=== PATIENT | male | born 1985 | race Caucasian/White ===

== ENCOUNTER 2017-06-14 15:54 | Emergency (ER) | payer OTHER, MEDICAID ==
[~2017-06-14 15:54] MED LIST: STERILE WATER IRRIGATION IR ONE; XYLOCAINE 1 % (PLAIN) ONE; XYLOCAINE 2 % (PLAIN) ONE
[2017-06-14] MEDS ORDERED: ZOFRAN INJ 4 MG VIAL ONE (15:56)
[2017-06-14] MEDS ORDERED: MORPHINE SULFATE INJ 4 MG ONE (15:56)
[2017-06-14] MEDS ORDERED: XYLOCAINE 2 % (PLAIN) ONE (15:56)
[2017-06-14 16:02] VITALS: BP 119/76; BMI 22.1
[2017-06-14] MEDS ORDERED: ADACEL TDaP IM ONE ×2 (16:02→16:06)
[2017-06-14] MEDS ORDERED: MORPHINE SULFATE INJ 4 MG IVP ONE (16:03)
[2017-06-14] MEDS ORDERED: ZOFRAN INJ 4 MG VIAL IVP ONE (16:03)
--- NOTE | 2017-06-14 16:08 | DR.LACERAT ---
HPI - Time Seen Time seen: 16:00 - Primary Care Physician Primary Care Physician: JAKE JENKINS - HPI Comment HPI Comment: HISTORY BELOW. - Complaints Chief Complaint Doctors Comments: CUT TIP OF RING FINGER AND ABRSION TO MIDDLE AND RING FINGERS ON LEFT HAND. CUT SUSTAIN WITH WEED EATER. TD NOT UTD. Chief Complaint:: PT C/O THAT HE CUT THE TIP OF HIS LEFT RING FINGER WITH A WEEDEATER AND PT HAS AN ABRASION TO HIS MIDDLE FINGER AND PINKY.. BR - Reviewed Nurses Notes Reviewed: Yes - Source History Provided: Patient - Mode of Arrival Mode of Arrival: EMS - Timing Onset of Chief Complaint: 06/14/17 - Context Mechanism: Metal (WEED EATER.) Tetanus Vaccination: No - Severity Pain Severity: Moderate Bleeding:: Controlled - Associated Signs and Symptoms Associated Signs and Symptoms: None PMH - PMH Past Medical History: No Past Surgical History: No Surgical History: No History - Family History History of Family Medical Conditions: No - Social History Does patient currently use any type of tobacco product: Yes Have you used tobacco products in the last 12 months: Yes Type of Tobacco Use: Cigarettes How many years tobacco product used: 6 Does any household member use tobacco: No Alcohol Use: Rarely Do you use any recreational Drugs:: No Lives With: Family Lives Where: Home - infectious screening In the last 2 months have you had wt loss of >10#?: NO Have you had fever, night sweats or hemotysis?: No Have you traveled outside the country in the last 6 months?: No Isolation: Standard ROS - Review of Systems Constitutional: No Symptoms Reported Eyes: No Symptoms Reported ENTM: No Symptoms Reported Respiratoy: No Symptoms Reported Cardiovascular: No Symptoms Reported Gastrointestinal/Abdominal: No Symptoms Reported Genitourinary: No Symptoms Reported Neurological: No Symptoms Reported Musculoskeletal: Left, Hand Integumentary: Change in Color, Wound (3CM LAC TIP LEFT RING FINGER.) Hematologic/Lymphatic: No Symptoms Reported Endocrine: No Symptoms Reported All Other Systems: Reviewed and Negative PE - Vital Signs Vitals: Pulse Rate 62 Respiratory Rate 18 Blood Pressure 119/76 O2 Sat by Pulse Oximetry 99 - General Limitations: No Limitations General Appearance: Alert - Head Head Exam: Normal Inspection - Eyes Eye exam: Normal Appearance - Neck Neck Exam: Trachea Midline - Chest Chest Inspection: Symmetric Chest Wall Rise - Respiratory Respiratory Exam: Normal Lung Sounds Bilat Respiratory Exam: Bilateral Clear to Auscultation - Cardiovascular Cardiovascular Exam: Regular Rate, Normal Rhythm, Normal Heart Sounds - Abdominal Exam Abdominal Exam: Normal Inspection - Extremities Extremities Exam: Tenderness (LAC RT RING FINGER.) - Back Back Exam: Normal Inspection - Neurologic Neurological Exam: Alert, Oriented X3 - Psychiatric Psychiatric Exam: Normal Affect, Normal Mood - Skin Type of Lesion: Laceration (LT RING FINGER.) MDM - Additional Information Obtained Additional Information Obtained From: Family - Differential Diagnosis Differential Diagnosis: Abrasion, Avulsion, Contusion, Laceration (LT RING FINGER.), Fracture Course - Treatment Treatment: SEE ORDERS. TD IM IN ED. - Consultation Consultation Comments: DR. CABRAL WILL SEE PATIENT IN HIS OFFICE THIS THUSDAY. - Education/Counseling Education/Counseling: Patient, Family, Education Educated On: Diagnosis, Needs for Follow Up ROR - XRAY XRAY Interpreted by: Radiologist XRAY Findings: REPORT DISCUSS WITH PATIENT. OPEN FRACTURE LT RING FEVER. Procedures - Laceration/Wound Repair Left Finger Wound Length (cm): 3 (LT RING FINGER) Wound's Depth, Shape: Flap Wound Explored: contaminated Betadine Prep?: Yes (BETADINE SOAK) Anesthesia: 2% Lidocaine Volume Anesthetic (ccs): 10 Wound Repaired With: sutures Suture Size/Type: 5:0, Vicryl Layer Closure?: No Sterile Dressing Applied?: Yes Splint Applied?: Yes Sling Applied?: No - Diagnosis Discharge Problem: Laceration of finger Qualifiers: Encounter type: initial encounter Finger: ring finger Damage to nail status: with damage Foreign body presence: without foreign body Laterality: left Qualified Code(s): S61.315A - Laceration without foreign body of left ring finger with damage to nail, initial encounter Fracture, finger Qualifiers: Encounter type: initial encounter Finger: ring finger Fracture type: open Phalanx: distal Fracture alignment: displaced Laterality: left Qualified Code(s) : S62.635B - Displaced fracture of distal phalanx of left ring finger, initial encounter for open fracture - Discharge Plan Disposition: HOME, SELF-CARE Condition: Stable Prescriptions: Cephalexin [KEFLEX CAP 500 MG *] 500 mg PO TID #30 cap Ketorolac Tromethamine [Toradol Tab] 10 mg PO Q8H PRN #15 tab PRN Reason: Pain - Follow ups/Referrals Follow ups/Referrals: INTERIANO,GALDINO L [Primary Care Provider] - 3 days - Instructions Instructions: Finger Fracture, [id number], Laceration Care, Adult, Easy-to- Read Additional Instructions: PT IS TO FLU WITH ROBYN WHATLEY ON 06/16/17 AT 10 AM IN THE [facility] ..BR . RETURN TO ED IF WORSE.
--- NOTE | 2017-06-14 16:32 | RAD ---
HISTORY: Laceration from weed eater Study: Three views left hand Comparison: None Findings: There is a comminuted fracture of the tuft of the distal phalanx of the 4th digit with moderate volar displacement. There is overlying soft tissue laceration with penetration to the level of the bone. N o retained radiopaque foreign body is identified. The remaining osseous structures appear intact. IMPRESSION: 1. Fracture of the 4th distal phalanx as described. Reported By:
[2017-06-14] MEDS ORDERED: ANCEF VIAL 1 GM IM ONE (16:40)
[2017-06-14] MEDS ORDERED: NEOSPORIN OINT ONE (16:52)
== END 2017-06-14 17:54 | disposition home or self-care (01) ==
LOC: ER 15:56
PROC: 0XQTXZZ Repair Left Ring Finger, External Approach (ICD-10-PCS; principal; 2017-06-14)
DX: S62.635B Displaced fracture of distal phalanx of left ring finger, initial encounter for open fracture (principal); S61.315A Laceration without foreign body of left ring finger with damage to nail, initial encounter; W29.8XXA Contact with other powered hand tools and household machinery, initial encounter; Y92.9 Unspecified place or not applicable
CPT/HCPCS: 12002; 73130; 90471; 96365; 96372; 96374; 96375; 99283; 99285; A4217; J2001; J2270; J2405

== ENCOUNTER → 2021-06-09 18:30 | Observation (INO) ==
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
[2021-06-09] MEDS: DILAUDID INJ IVP PRN ×4 (00:46→16:09)
[2021-06-09 01:23] VITALS: BMI 23.0
--- NOTE | 2021-06-09 08:16 | OR.IMMED ---
IMMEDIATE POST-OP NOTE Immediate Post-Op Note Pre-Op Diagnosis: acute appendicitis Post-Op Diagnosis: same Procedure: laparoscopic appendectomys Description of Procedure: ee opertative summary Surgeon/Mechanic Field Service: Ana M Findings: acute appendicitis Specimens Removed: appendix Estimated Blood Loss: minimal Drains: NONE Complications: none Discharge Progress Notes: to floor , regular diet , d/c home later today Final Diagnosis: acute appendicitis
--- NOTE | 2021-06-09 13:24 | DR.OPNOTE ---
OP NOTE Pre-Op Diagnosis: acute appendicitis Post-Op Diagnosis: same Procedure Date Date Of Procedure: 06/09/21 Procedure: PROCEDURE: Laparoscopic appendectomy NARRATIVE: The patient was taken to the operative suite and placed in the supine position and general endotracheal anesthesia induced. The entire abdomen prepped and draped in sterile fashion and the patient placed in Trendelenburg position and rotated to his left. Time out for the procedure obtained . 5 mm incision was made lateral to the left rectus sheath online with the umbilicus and 5 mm optical trocar used to enter the abdominal cavity. Abdomen insufflated to 15 mm of Mercury with carbon dioxide. Under direct Vision a 5 mm trocar was placed above the pubic tubercles in the midline and a 12 mm trocar placed in the left lower quadrant .Appendix appeared to be acutely inflamed with no evidence of rupture. The lateral attachments were taken down sharply with electrocautery and the appendix and it's mesentery divided with one fire the GI Stapler . Appendix placed in the specimen bag and removed through the left lower quadrant trocar site The trocar was replaced . The abdomen was irrigated with saline and suctioned free. All trocars removed. The fascia of t he left lower quadrant trocar site closed with 3-0 Vicryl suture. All incisions then closed with 3- 0 Vicryl subcutaneous sutures Skin closed with mastisol and steri- stripes . Total of 15 cc 0.55 Marcaine distributed between the 3 laparoscopic incisions . Patient extubated and taken to the PACU in good condition. Type of Anesthesia: Local (15 cc of 0.5 % Marcaine ) and General Anesthetic w/ETT Findings: acute appendicitis Specimen/Pathology: appendix EBL: minimal Drains/Tubes Placed: None Complications:: none Needle/Sponge Count:: correct Disposition/Condition: Pt. tolerated procedure without difficulty. Extubated in the OR and taken to PACU in stable condition.
[2021-06-09 14:16] VITALS: BP 112/68
[~2021-06-09 18:30] MED LIST changes: +ANCEF VIAL 1 GRAM ONE; +BARHEMSYS INJ IVP PRN; +BENADRYL INJ 50 MG VIAL IVP PRN; +BRIDION ONE; +DILAUDID INJ IVP PRN; +DILAUDID INJ ONE; +DIPRIVAN VIAL 20 ML ONE; +FENTANYL VIAL INJ 100 mcg ONE; +INVanz INJ 1 GRAM VIAL 1 G in NS 100 ML IV 100 ML IV SCH; +INVanz INJ 1 GRAM VIAL ONE; +LR 1,000 ML IV 1,000 ML IV ONE; +LR 1,000 ML IV 1,000 ML IV SCH; +MARCAINE/EPINEPHRINE ONE; +NS 100 ML IV 100 ML ONE; +PEPCID 20 MG VIAL ONE; +PHENERGAN INJ 25 MG IM PRN; +REGLAN INJ 10 MG VIAL IVP PRN; -STERILE WATER IRRIGATION IR ONE; +SUPRANE ONE; +VERSED ONE; -XYLOCAINE 1 % (PLAIN) ONE; +ZEMURON 100 MG VIAL ONE; +ZOFRAN INJ 4 MG VIAL IVP PRN; +ZOFRAN INJ 4 MG VIAL ONE
--- NOTE | 2021-06-09 19:34 | W.DIS.FURT ---
Summary of Discharge Discharge Summary of Date Date of Exam: 06/09/21 Admission Date Date of Admission: 06/09/21 Admission Diagnosis Hospital Course: 35 year old male who presented to the hospital in [place], [place] with abdominal pain. CT scan consistent with acute appendicitis. They had no surgical capabilities there and he was transferred here for care. He underwent uncomplicated laparoscopic appendectomy for acute appendicitis. He has done well and will be discharged home at this time on his usual medications plus Lortab 5 mg tablets, one every six hours PRN pain, #20. He will follow up in one week. Vital Signs: Vital Signs (72 hours) 06/08/21 22:00 06/09/21 00:00 06/09/21 00:46 Temperature 98.4 F 98.6 F Pulse Rate Pulse Rate [Brachial] 70 56 L Respiratory Rate 20 18 20 Blood Pressure Blood Pressure [Right Arm] 120/62 115/69 O2 Sat by Pulse Oximetry 95 96 06/09/21 01:16 06/09/21 04:00 06/09/21 05:18 Temperature 98.2 F Pulse Rate Pulse Rate [Brachial] 56 L Respiratory Rate 20 18 19 Blood Pressure Blood Pressure [Right Arm] 126/65 O2 Sat by Pulse Oximetry 97 06/09/21 05:48 06/09/21 07:19 06/09/21 08:17 Temperature 97.0 F L 97.0 F L Pulse Rate 59 L 80 Pulse Rate [Brachial] Respiratory Rate 19 18 18 Blood Pressure 116/70 129/67 Blood Pressure [Right Arm] O2 Sat by Pulse Oximetry 98 06/09/21 08:22 06/09/21 08:27 06/09/21 08:32 Temperature Pulse Rate 78 84 81 Pulse Rate [Brachial] Respiratory Rate 18 18 18 Blood Pressure 120/46 107/69 113/75 Blood Pressure [Right Arm] O2 Sat by Pulse Oximetry 97 95 96 06/09/21 08:37 06/09/21 08:42 06/09/21 08:47 Temperature Pulse Rate 77 75 75 Pulse Rate [Brachial] Respiratory Rate 18 18 18 Blood Pressure 123/75 128/70 121/74 Blood Pressure [Right Arm] O2 Sat by Pulse Oximetry 97 99 98 06/09/21 08:55 06/09/21 09:09 06/09/21 09:10 Temperature 98.2 F 99.0 F Pulse Rate Pulse Rate [Brachial] 76 66 Respiratory Rate 16 20 16 Blood Pressure Blood Pressure [Right Arm] 114/58 119/68 O2 Sat by Pulse Oximetry 98 100 06/09/21 09:25 06/09/21 09:39 06/09/21 09:40 Temperature 98.6 F 98.6 F Pulse Rate Pulse Rate [Brachial] 71 61 Respiratory Rate 18 18 18 Blood Pressure Blood Pressure [Right Arm] 115/68 109/66 O2 Sat by Pulse Oximetry 99 98 06/09/21 09:55 06/09/21 10:55 06/09/21 11:55 Temperature 98.3 F 99.1 F 98.0 F Pulse Rate Pulse Rate [Brachial] 58 L 76 66 Respiratory Rate 16 16 20 Blood Pressure Blood Pressure [Right Arm] 109/66 117/64 117/68 O2 Sat by Pulse Oximetry 98 99 96 06/09/21 12:55 06/09/21 13:55 06/09/21 16:00 Temperature 98.5 F 98.0 F 98.0 F Pulse Rate Pulse Rate [Brachial] 58 L 57 L 57 L Respiratory Rate 16 16 16 Blood Pressure Blood Pressure [Right Arm] 117/71 112/68 112/68 O2 Sat by Pulse Oximetry 97 97 97 06/09/21 16:09 06/09/21 16:39 Temperature Pulse Rate Pulse Rate [Brachial] Respiratory Rate 19 20 Blood Pressure Blood Pressure [Right Arm] O2 Sat by Pulse Oximetry Labs: Laboratory Last Values Tissue Pathology To follow 06/09/21 08:02 Reason For Visit: ACUTE APPENDICITIS Discharge Date Discharge Date: 06/09/21 Discharge Diagnosis All Active Problems (Updated 06/09/21 @ 00:18 by Lonnie Viramontes) Appendicitis (Acute) Acute viral disease (Acute) Fracture, finger (Acute) Laceration of finger (Acute) Plan of Treatment: Continue with present treatment and follow up plan. Pt is to keep follow up appointment as instructed and take medications as ordered. Discharge Medications Discharge Medications: acetaminophen [From Tylenol-Codeine #3] Allergy (Verified 06/14/17 15:55) codeine [From Tylenol-Codeine #3] Allergy (Verified 06/14/17 15:55) tramadol [From Ultram] Allergy (Verified 06/14/17 15:55) New Prescriptions hydrocodone-acetaminophen 1 tab PO Q6H PRN #20 tab MDD 4 06/09/21 [Rx] Follow up and Referral Follow Up: 1 Week (Ana M) Discharge Disposition Assessment: No acute distress noted at time of discharge. Discharge Disposition: good Discharge Condition: good Discharge Plan Discharge Plan Hospital Course: 35 year old male who presented to the hospital in [place], [place] with abdominal pain. CT scan consistent with acute appendicitis. They had no surgical capabilities there and he was transferred here for care. He underwent uncomplicated laparoscopic appendectomy for acute appendicitis. He has done well and will be discharged home at this time on his usual medications plus Lortab 5 mg tablets, one every six hours PRN pain, #20. He will follow up in one week. Patient Disposition: 01 HOME, SELF-CARE Condition: Stable Health Concerns: Post Hospitalization: new medications and changes needed to prevent readmission or further decline. Pt educated and given instructions on all concerns. Care Plan Goals: Problem: Infection Goal: Temperature within normal limits. Resolved infection. Instructions: Follow provided instructions. Follow up with primary physician as directed. Contact primary care physician or report to the closest Emergency Room if condition worsens. Plan of Treatment: Continue with present treatment and follow up plan. Pt is to keep follow up appointment as instructed and take medications as ordered. Assessment: No acute distress noted at time of discharge. Prescription drug monitoring program results: PDMP reviewed and no concerns identified Prescriptions: New hydrocodone-acetaminophen 5-325 mg Tablet 1 tab PO Q6H MDD 4 PRNQty: 20 RF: 0 Orders to Discharge Patient Discharge Orders: Discharge (Routine); Ordered 06/09/21 Ordered By: Lonnie Viramontes Follow ups/Referrals Follow ups/Referrals: GALDINO INTERIANO [Primary Care Provider] - 06/18/21 10:30 am Lonnie Viramontes [STAFF PHYSICIAN] - 06/17/21 1:00 pm Instructions Instructions: How to Use an Incentive Spirometer, Soft-Food Eating Plan, Steps to Quit Smoking, [id number], Health Risks of Smoking, Laparoscopic Appendectomy, Adult, Care After, [id number], Sutures, [place], or Adhesive Wound Closure, [id number], Tobacco Use Disorder Activity Restrictions/Additional Instructions: Written Rx for Lortab 5mg PO Q6H PRN.#20 given to patient. Stand Alone Forms: Excuse From Work or School, Precautions for COVID19, [facility], Patient Portal, Social Distancing
== END | disposition home or self-care (01) ==
LOC: MED/SURG
PROVIDERS: ADMIT Surgery; ATTEND Surgery
PROC: APPYLAP (ICD-10-PCS; 2021-06-09 07:45)